=== PATIENT | male | born 1975 | race Caucasian/White ===

== ENCOUNTER 2019-02-02 08:01 | Emergency (ER) | payer SELFPAY ==
[2019-02-02 08:15] VITALS: BP 134/96; PULSE 68; TEMP 97.2; BMI 28.9
--- NOTE | 2019-02-02 08:49 | PDOC ---
History of Present Illness - General Chief Complaint: Pain, Acute Stated Complaint: ABD. PAIN Time Seen by Provider: 02/02/19 08:48 History Source: Patient Exam Limitations: No Limitations - History of Present Illness Initial Comments: 02/02/19 09:04 43yM w PMHx HTN presenting w L flank pain. Insidious onset 1 week ago. Now constant pain radiating to L back, L chest, umbilical region. Did not seek medical attention until now d/t work. Denies trauma, AB surgery, did not take any pain meds. Drinks 2-3 beers/day. Was seen in 2016 for R flank pain, workup negative, pain relieved w ibuprofen and percocet. Denies fever, chest pain, nausea/vomiting, SOB, BLE neuro deficits, urinary/bowel mvmt issues. Past History - Past Medical History Allergies/Adverse Reactions: Allergies Allergy/AdvReac Type Severity Reaction Status Date / Time No Known Allergies Allergy Unverified 02/02/19 08:11 Home Medications: Ambulatory Orders Ibuprofen 800 mg PO QID PRN #20 tablet 01/14/16 Oxycodone HCl/Acetaminophen [Percocet 5-325 mg Tablet] 1 tab PO Q4H PRN #10 tablet MDD 6 01/14/16 - Immunization History Td Vaccination: Yes Immunization Up to Date: Yes - Psycho Social/Smoking Cessation Hx Smoking Status: No Smoking History: Never smoked Number of Cigarettes Smoked Daily: 0 Cigars Per Day: 0 Hx Alcohol Use: No Drug/Substance Use Hx: No Substance Use Type: None Review of Systems - Review of Systems Constitutional: No: Chills, Fever HEENTM: No: Eye Pain, Nose Pain, Throat Pain, Mouth Pain Respiratory: No: Cough, Shortness of Breath, Wheezing Cardiac (ROS): Yes: Chest Pain (L). No: Palpitations, Syncope ABD/GI: No: Abdominal Distended, Constipated, Diarrhea, Nausea, Vomiting : Yes: Flank Pain (L). No: Burning, Dysuria, Discharge, Hematuria Musculoskeletal: Yes: Back Pain (L) Integumentary: No: Bruising, Flushing, Lesions Neurological: No: Headache, Seizure, Tingling Psychiatric: No: Anxiety, Depression Endocrine: No: Excessive Sweating, Flushing, Intolerance to Cold, Intolerance to Heat Hematologic/Lymphatic: No: Anemia, Blood Clots *Physical Exam - Vital Signs Last Vital Signs Temp Pulse Resp BP Pulse Ox 97.2 F L 68 18 134/96 99 02/02/19 08:11 02/02/19 08:11 02/02/19 08:11 02/02/19 08:11 02/02/19 08:11 - Physical Exam General Appearance: Yes: Nourished, Appropriately Dressed, Mild Distress HEENT: positive: EOMI, TED, Normal Voice, Hearing Grossly Normal. negative: Scleral Icterus (R), Scleral Icterus (L), Nasal Congestion, Rhinorrhea Respiratory/Chest: positive: Lungs Clear, Normal Breath Sounds. negative: Chest Tender, Respiratory Distress, Crackles, Rales, Rhonchi, Stridor, Wheezing Cardiovascular: positive: Regular Rhythm, Regular Rate, S1, S2. negative: Edema , Murmur Gastrointestinal/Abdominal: positive: Normal Bowel Sounds, Tender (moderate L flank tender), Flat, Soft. negative: Organomegaly, Distended, Guarding, Rebound , Tenderness, Hernia, Mass Musculoskeletal: negative: CVA Tenderness (R), CVA Tenderness (L) Extremity: positive: Normal Capillary Refill Integumentary: positive: Normal Color Neurologic: positive: Fully Oriented, Alert, Normal Mood/Affect, Normal Response , Responsive. negative: Sensory Deficit, Confused, Disoriented ED Treatment Course - LABORATORY CBC & Chemistry Diagram: 02/02/19 09:25 02/02/19 09:25 Medical Decision Making - Medical Decision Making 02/02/19 09:40 CBC CMP lipase normal tylenol --- 43yM w PMHx HTN presenting w 1 week L flank pain likely d/t MSK strain from work. Spiral CT did not show renal stone. CT showed fatty liver. Low concern for pancreatitis (normal lipase) vs UTI (clean UA). Given tylenol w pain relief. DC home w PCP f/u Discharge - Discharge Information Problems reviewed: Yes Clinical Impression/Diagnosis: Left flank pain Condition: Improved Disposition: HOME - Admission No - Follow up/Referral - Patient Discharge Instructions Patient Printed Discharge Instructions: DI for Flank Pain Additional Instructions: you were seen for flank pain. Your labs and imaging did not show anything concerning. You were given pain medication Please follow up with your primary care doctor regarding this visit You can take tylenol or ibuprofen if you continue to have pain Come back to the ED if you see blood in your urine, worsening pain despite medication, or vomit. - Post Discharge Activity
[2019-02-02] MEDS ORDERED: ACETAMINOPHEN 1000 MG/100 ML VIAL (NON FORMULARY) IVPB ONE (09:00)
[2019-02-02] MEDS ORDERED: ACETAMINOPHEN INJECTION 100 ML IVPB ONE (09:21)
[2019-02-02 09:40] LABS: BASO % 0.7 % (0-2.0); EOS % 3.8 % (0-4.5); HEMATOCRIT 45.4 % (35.4-49); HEMOGLOBIN 15.5 GM/dL (11.7-16.9); LYMPH % 20.5 % (8-40); MCH 32.5 pg (25.7-33.7); MEAN CELL VOLUME 95.5 fl (80-96); PLATELET COUNT 278 K/MM3 (134-434); RBC 4.76 M/mm3 (4.00-5.60); RDW 13.3 % (11.9-15.9)
[2019-02-02 10:13] LABS: BILIRUBIN,TOTAL 0.5 mg/dL (0.2-1); BLOOD UREA NITROGEN 16.6 mg/dL (7-18); CALCIUM 9.5 mg/dL (8.5-10.1); CREATININE 0.8 mg/dL (0.55-1.3); POTASSIUM 4.6 mmol/L (3.5-5.1); TOT PROT 7.8 g/dl (6.4-8.2)
[2019-02-02 11:43] LABS: PH,URINE 5.5 (5.0-8.0); URINE APPEARANCE CLEAR; URINE BILIRUBIN NEGATIVE (NEGATIVE); URINE COLOR YELLOW; URINE GLUCOSE (UA) NEGATIVE (NEGATIVE); URINE KETONE NEGATIVE (NEGATIVE); URINE LEUK ESTERASE NEGATIVE (NEGATIVE); URINE NITRITE NEGATIVE (NEGATIVE); URINE PROTEIN NEGATIVE (NEGATIVE); URINE UROBILINOGEN 0.2 mg/dL (0.2-1.0)
--- NOTE | 2019-02-02 13:13 | PDOC ---
Documentation entered by Sri Kaminski SCRIBE, acting as scribe for Rajani Goff MD. Rajani Goff MD: This documentation has been prepared by the Gordy lezama Adrianna, SCRIBE, under my direction and personally reviewed by me in its entirety. I confirm that the documentation accurately reflects all work, treatment, procedures, and medical decision making performed by me. Attending Attestation - Resident Resident Name: Hossein Gustafson - ED Attending Attestation I have performed the following: I have examined & evaluated the patient, The case was reviewed & discussed with the resident, I agree w/resident's findings & plan, Exceptions are as noted - HPI HPI: The patient is a 43 year old male, with no significant PMH, who presents to the ED for evaluation of flank pain for 1 week. Patient complains of gradual onset left-sided flank pain, that radiates to the left side of the back, chest, and abdomen. Denies any trauma to the area. He denies heavy lifting He denies fevers or chills He denies hematuria, dysuria He denies rash He denies chest pain or difficulty breathing He has had these symptoms in the past, was seen by a doctor who gave him antibiotics for a "cold" and his symptoms resolved He denies nausea, vomiting, diarrhea Allergies: NKA, NKDA Surgical History: Social History: Daily EtOH use (2-3 beers). 02/02/19 13:09 - Physicial Exam PE: GENERAL: The patient is in no acute distress. ENT: Ears normal, nares patent, oropharynx clear without exudates. Moist mucous membranes. NECK: Normal range of motion, supple, no nuchal rigidity LUNGS: Breath sounds equal, clear to auscultation bilaterally. No wheezes, and no crackles. HEART: Regular rate and rhythm, normal S1 and S2 without murmur, rub or gallop. ABDOMEN: Soft, LUQ tenderness, normoactive bowel sounds. No guarding, no rebound. MUSCULOSKELETAL: chest wall tenderness, no involuntary guarding EXTREMITIES: Normal range of motion, no edema. NEUROLOGICAL: Cranial nerves II through XII grossly intact. Normal speech. No focal neurological deficits. SKIN: Warm, Dry, normal turgor, no rashes or lesions noted. 02/02/19 13:10 - Medical Decision Making 02/02/19 13:11 Left Flank pain Mild LUQ abdominal tenderness to palpation DD: ureteral obstructing stone, pyelonephritis, GERD, Ulcer, Will do: Labs UA Spiral CT Laboratory Tests 02/02/19 02/02/19 02/02/19 09:21 09:25 09:25 WBC 5.0 Hgb 15.5 Hct 45.4 Plt Count 278 BUN 16.6 Creatinine 0.8 Urine Blood Negative Urine Nitrite Negative Ur Leukocyte Esterase Negative 02/02/19 13:[address] head
== END 2019-02-02 14:19 | disposition home or self-care (01) ==
LOC: JER 08:01
CPT/HCPCS: 36415; 74176-TC; 80053; 81003; 83690; 85025; 87086; 99282-25; J0131